=== PATIENT | male | born 1960 | race Caucasian/White ===

== ENCOUNTER 2017-09-23 13:23 | Day surgery (SDC) | payer OTHER ==
[~2017-09-23 13:23] MED LIST: ALLO300 PO; ASPI325 PO; CHOL10002 PO; Keflex500 MG PO; LISI5 PO; PROM25 PO; Percocet 5-3251 EACH PO; SIMV40 PO; TRAM50 PO
[2017-09-23] MEDS ORDERED: BACL10 PO (14:03)
== END 2017-09-23 22:40 | disposition home or self-care (01) ==
LOC: MHTC 13:23
PROC: 065P3ZZ Destruction of Right Saphenous Vein, Percutaneous Approach (ICD-10-PCS; principal; 2017-09-23)
PROC: 3E033TZ Introduction of Destructive Agent into Peripheral Vein, Percutaneous Approach (ICD-10-PCS; principal; 2017-09-23)
DX: I83.11 Varicose veins of right lower extremity with inflammation (principal); I87.2 Venous insufficiency (chronic) (peripheral); I10 Essential (primary) hypertension; E78.5 Hyperlipidemia, unspecified; G47.33 Obstructive sleep apnea (adult) (pediatric)
CPT/HCPCS: 36466; 36475; 99152; C1888; C1894; J1644; J2250; J3010; J7040

== ENCOUNTER 2018-07-06 07:19 | Day surgery (SDC) | payer OTHER, BC ==
[~2018-07-06] VITALS: Ht 180.3 cm; Wt 102.5 kg
[~2018-07-06 07:19] MED LIST changes: +BACL10 PO; +MELO7.5 PO; +Norco 5-325 Ta1 EACH PO; +ZOLP10 PO; +Zofran Odt4 MG SL
--- NOTE | 2018-07-06 07:55 | NUR ---
STUDENT RN ASSISTING WITH PREOP CARE THIS AM. AGREE WITH HER CHARTING AND CARE.
--- NOTE | 2018-07-06 07:56 | NUR ---
PATIENT GAVE PERMISSION FOR ME TO CARE FOR HIM TODAY 07/06/18. History, Chart, Medications and Allergies reviewed before start of procedure.Patient confirms NPO status and agrees with scheduled surgery. Patient states colon prep results clear.Lungs clear T/O to Auscultation.
--- NOTE | 2018-07-06 07:58 | NUR ---
07/06/18 0758 Brandon Keys PATIENT DETERMINED TO BE ASA APPROPRIATE FOR MOD SEDATION MONITOR INTACT WITH CONTINUOUS PULSE OXIMETRY AND INTERMITTENT BP.3-LEAD EKG REVIEWED WITH PHYSICIAN PRIOR TO START OF PROCEDURE.O2 VIA N/C INTACT THROUGHOUT SEDATION/PROCEDURE.History, Chart, Medications and Allergies reviewed before start of procedure.
--- NOTE | 2018-07-06 09:09 | NUR ---
Discharge instructions reviewed with patient. Patient verbalizes understanding. Copy given to patient to take home. Discharged via wheelchair to private car for ride home.
== END 2018-07-06 23:01 | disposition home or self-care (01) ==
LOC: ORSCMMR 07:19 → ORD 08:00 → ORSCMMR 23:01
PROVIDERS: Internal Medicine Gastroenterology
PROC: 0DJD8ZZ Inspection of Lower Intestinal Tract, Via Natural or Artificial Opening Endoscopic (ICD-10-PCS; principal; 2018-07-06 08:00)
DX: Z12.11 Encounter for screening for malignant neoplasm of colon (principal); Z86.010 Personal history of colon polyps; E78.00 Pure hypercholesterolemia, unspecified; I10 Essential (primary) hypertension; K64.8 Other hemorrhoids; G47.30 Sleep apnea, unspecified; Z79.899 Other long term (current) drug therapy
CPT/HCPCS: J2250; J3010; J7120

== ENCOUNTER 2019-05-18 18:20 | Emergency (ER) | payer OTHER, BC ==
[~2019-05-18] VITALS: Ht 180.3 cm; Wt 97.1 kg
[2019-05-18 18:47] LABS: BASOPHILS ABSOLUTE AUTO 0.02 K/mm3 (0.00-0.23); BASOPHILS PERCENT AUTO 0 % (0-2); EOSINOPHILS ABSOLUTE AUTO 0.02 K/mm3 (0.00-0.68); EOSINOPHILS PERCENT AUTO 0 % (0-6); Hematocrit 47.7 % (37.0-53.0); Hemoglobin 16.1 g/dL (13.5-17.5); IMMATURE GRAN ABSOLUTE AUTO 0.03 K/mm3 (0.00-0.10); IMMATURE GRAN PERCENT AUTO 0 % (0-1); LYMPHOCYTES ABSOLUTE AUTO 0.81 K/mm3 (0.84-5.20); LYMPHOCYTES PERCENT AUTO 8 % (21-46); MONOCYTES ABSOLUTE AUTO 0.58 K/mm3 (0.16-1.47); MONOCYTES PERCENT AUTO 6 % (4-13); Mean Corpuscular HGB 31.1 pg (26.0-34.0); Mean Corpuscular HGB Conc 33.8 g/dL (31.5-36.5); Mean Corpuscular Volume 92 fL (80-100); Mean Platelet Volume 10.1 fL (9.1-12.4); NEUTROPHILS ABSOLUTE AUTO 9.18 K/mm3 (1.96-9.15); NEUTROPHILS PERCENT AUTO 86 % (41-73); Platelet Count 223 K/mm3 (150-400); RDW Coefficient Variation 12.4 % (11.7-14.2); RDW Standard Deviation 42.3 fL (35.1-46.3); Red Blood Cell Count 5.17 M/mm3 (4.30-5.90); White Blood Cell Count 10.64 K/mm3 (4.00-11.30)
[2019-05-18 19:12] LABS: Alanine Aminotransfer (ALT/SGP 21 U/L (12-78); Albumin, Blood 4.1 g/dL (3.4-5.0); Albumin/Globulin Ratio 1.2 (0.8-1.8); Alk Phos 73 U/L (50-136); Anion Gap 4 mmol/L (6-16); Aspartate Aminotrans (AST/SGOT 15 U/L (12-37); Bilirubin, Total 1.6 mg/dL (0.1-1.0); Blood Urea Nitrogen 12 mg/dL (8-24); Bun/Creatinine Ratio 9.7 (12.0-20.0); CO2, Blood 27 mmol/L (21-32); Calcium, Blood 8.9 mg/dL (8.5-10.1); Chloride, Blood 109 mmol/L (98-108); Creatinine, Blood 1.24 mg/dL (0.60-1.20); Globulin, Blood 3.5 g/dL (2.2-4.0); Glomerular Filtration Rate >60 (60-); Glucose, Blood 108 mg/dL (70-99); Potassium, Blood 3.7 mmol/L (3.5-5.5); Sodium, Blood 140 mmol/L (136-145); Total Protein, Blood 7.6 g/dL (6.4-8.2)
[2019-05-18 19:44] LABS: Source, Urine Clean Catch
[2019-05-18 19:56] LABS: Appearance, Urine Clear (Clear); Bilirubin, Urine Neg (Neg); Blood, Urine 2+ (Neg); Color, Urine Yellow (P-Yellow); Glucose Qualitative, Urine Neg (Neg); Ketones, Urine Neg (Neg); Leukocyte Esterase, Urine Neg (Neg); Nitrite, Urine Neg (Neg); Protein, Urine Neg (Neg); Urobilinogen, Urine NORM (Normal)
[2019-05-18 20:01] LABS: Bacteria Mod /hpf; Red Blood Cells, Urine 0-2 /hpf (0-2); Squamous Epithelial Cells Not Seen /hpf (Few)
== END 2019-05-18 21:12 | disposition home or self-care (01) ==
LOC: ER 18:20
PROVIDERS: Physician Assistant
DX: N23 Unspecified renal colic (principal); E78.5 Hyperlipidemia, unspecified; I10 Essential (primary) hypertension; M10.9 Gout, unspecified; G47.30 Sleep apnea, unspecified; N40.0 Benign prostatic hyperplasia without lower urinary tract symptoms
CPT/HCPCS: 36415; 74176; 80053; 81001; 85025; 87086; 96374; 99284-25; A9270; J1885

== ENCOUNTER → 2023-07-01 | Outpatient (CLI) | payer OTHER | END | disposition home or self-care (01) | LOC: LAB SHORT 09:25 → LAB 09:25 | DX: M79.671 Pain in right foot (principal); M20.11 Hallux valgus (acquired), right foot; R26.2 Difficulty in walking, not elsewhere classified | CPT/HCPCS: 88305; 88311 ==

== ENCOUNTER 2024-02-03 06:34 | Day surgery (SDC) | payer OTHER ==
[~2024-02-03] VITALS: Ht 177.8 cm; Wt 101.9 kg
[~2024-02-03 06:34] MED LIST changes: +ESZO3 PO; +Lactated Ringer's 1,000 ML IV SCH; +MELO7.5; +TAMS.4ER PO
[2024-02-03] MEDS ORDERED: propofoL 40 ML IV ONE (07:00)
--- NOTE | 2024-02-03 07:01 | NUR ---
History, Chart, Medications and Allergies reviewed before start of procedure. Patient confirms NPO status and agrees with scheduled surgery.
--- NOTE | 2024-02-03 07:09 | NUR ---
02/03/24 [address] GUTIÉRREZ, SEE ANESTHESIA RECORDS.
[2024-02-03 07:55] VITALS: BP 90/55
[2024-02-03 08:06] VITALS: BP 101/72
[2024-02-03 08:15] VITALS: BP 109/84
--- NOTE | 2024-02-03 08:15 | NUR ---
PT TOLERATING PO FLUIDS WELL. Discharge instructions reviewed with patient. Patient verbalizes understanding. Copy given to patient to take home. Patient States Post-Procedure ride home has been arranged.
--- NOTE | 2024-02-03 08:29 | NUR ---
Patient up to Ambulate independently. Gait steady. Discharged via wheelchair to private car for ride home.
== END 2024-02-03 08:30 | disposition home or self-care (01) ==
LOC: ORSCMMR 06:34 → ORD 07:30 → ORSCMMR 08:30
PROVIDERS: Internal Medicine Gastroenterology
PROC: 0DBM8ZX Excision of Descending Colon, Via Natural or Artificial Opening Endoscopic, Diagnostic (ICD-10-PCS; principal; 2024-02-03 07:30)
DX: Z12.11 Encounter for screening for malignant neoplasm of colon (principal); Z86.0101 Personal history of adenomatous and serrated colon polyps; D12.4 Benign neoplasm of descending colon; I10 Essential (primary) hypertension; G47.33 Obstructive sleep apnea (adult) (pediatric); E66.9 Obesity, unspecified; Z68.32 Body mass index [BMI] 32.0-32.9, adult; Z79.899 Other long term (current) drug therapy
CPT/HCPCS: 88305; J2704; J7120